=== PATIENT | male | born 1960 | race Caucasian/White ===

== ENCOUNTER 2020-11-10 15:25 | Emergency (ER) | payer MEDICARE, SELFPAY ==
[2020-11-10] VITALS (15 sets, daily range): BP systolic 94–127; BP diastolic 63–86; PULSE 65–96; RESP 12–23; TEMP 36.2; O2SAT 93–98; BMI 32.1
--- NOTE | 2020-11-10 15:26 | DI.RAD.S_ITS ---
PROCEDURE: XR ACUTE ABDOMEN SERIES INDICATIONS: nausea / vomiting / diarrhea/ dizziness TECHNIQUE: One view chest and two views of the abdomen were acquired. COMPARISON: None. FINDINGS: Surgical changes and devices: None. Chest: Lungs are clear. Heart size is normal. No pleural effusions. No pneumoperitoneum. Abdomen: Bowel gas pattern is nonobstructive. No suspicious calcifications. Visualized solid organ contours appear normal. Bones: No suspicious bony lesions. IMPRESSION: Chest and abdomen without acute radiographic abnormalities. Nonobstructive bowel gas pattern. Dictated by: Everardo Perea M.D. on 11/10/2020 at 16:08 Approved by: Everardo Perea M.D. on 11/10/2020 at 16:11
[2020-11-10 16:05] LABS: COVID19 -Nasal RAPID Negative (Negative)
[2020-11-10 16:07] LABS: Add Manual Diff / Slide Review NO; Basophils Absolute Auto 100 /uL (0-100); Basophils Percent Auto 0.3 % (0-2); Eosinophils Absolute Auto 100 /uL (0-450); Eosinophils Percent Auto 0.3 % (2-4); Hematocrit 52.2 % (41-53); Hemoglobin 17.2 g/dL (13.5-17.5); Lymphocytes Absolute Auto 1600 /uL (1100-4500); Lymphocytes Percent Auto 8.5 % (25-40); Mean Corpuscular HGB Conc 32.9 % (30-36); Mean Corpuscular Hemoglobin 29.6 PG (26-34); Mean Corpuscular Volume 89.8 fL (80-100); Monocytes Absolute Auto 900 /uL (0-900); Monocytes Percent Auto 4.4 % (3-14); Neutrophils Absolute Auto 16700 /uL (1500-7000); Neutrophils Percent Auto 86.5 % (50-75); Platelet Count 264 X10^3/uL (150-400); Red Blood Cell Count 5.81 X10^6/uL (4.5-5.9); Red Cell Distribution Width 12.9 % (11.6-14.8); White Blood Cell Count 19.3 X10^3/uL (4.5-11.0)
[2020-11-10 16:17] LABS: Alanine Aminotransferase 48 IU/L (<50); Albumin 4.1 g/dL (3.5-5.0); Albumin Globulin Ratio 1.8 (1.0-2.8); Alkaline Phosphatase 58 U/L (38-126); Aspartate Aminotransferase 33 IU/L (17-59); BUN Creatinine Ratio 33.8 (6-22); Bilirubin Total 0.3 mg/dL (0.2-1.3); Blood Urea Nitrogen 27 mg/dL (9-20); Calcium 8.8 mg/dL (8.4-10.2); Carbon Dioxide 22 mmol/L (22-32); Chloride 105 mmol/L (98-107); Creatine Kinase 204 U/L (55-170); Estimated Glomerular Filt Rate > 60.0 mL/min (>60); Globulin 2.3 g/dL (1.7-4.1); Glucose 197 mg/dL (80-110); HEMOLYSIS < 15 (0-50); Lipase 80 U/L (23-300); Potassium 4.5 mmol/L (3.4-5.1); Sodium 136 mmol/L (137-145); Total Protein 6.4 g/dL (6.3-8.2)
[2020-11-10 16:28] LABS: Troponin I < 0.012 ng/mL (0.01-0.034)
[2020-11-10 16:32] LABS: Creatine Kinase MB 4.02 ng/mL (<2.37)
--- NOTE | 2020-11-10 16:48 | ED.DIZZY ---
HPI - Dizziness General Chief Complaint: Dizziness Time Seen by Provider: 11/10/20 16:00 Source: patient and EMS Mode of arrival: Ambulatory Limitations: no limitations History of Present Illness HPI Narrative: Patient is 60-year-old male who presents with sudden onset nausea vomiting dizziness diarrhea. He said he was feeling nauseous he got dizzy sweaty lightheaded vomited a few times and then had 1 episode of diarrhea. He feels like he is dizzy with movement but overall feeling a bit better. He has no numbness tingling or weakness. He has been having palpitations ongoing for a number of months but is not any worse. He denies any chest pain. He was feeling perfectly well in his normal state of health this. Related Data Home Medications Medication Instructions Recorded Confirmed MULTIVITAMIN (Multivitamin #0 05/27/03 -) Previous Rx's Medication Instructions Recorded ondansetron 4 mg disintegrating 4 mg PO Q8H PRN #10 tab 11/10/20 tablet Allergies Allergy/AdvReac Type Severity Reaction Status Date / Time No Known Drug Allergies Allergy Verified 11/10/20 15:30 Review of Systems Review of Systems Narrative: GENERAL: Denies chills, fatigue, malaise, fever, sweats, travel HEENT: Denies sinus pain, ear pain, sore throat, difficulty swallowing, neck pain RESPIRATORY: Denies dyspnea, cough, wheezing, hemoptysis, sputum. CARDIOVASCULAR: Denies chest pain, palpitations, orthopnea, edema GASTROINTESTINAL: See HP : Denies dysuria, frequency, incontinence, hematuria, urinary retention, flank pain. MUSCULOSKELETAL: Denies weakness, joint pain, or bony pain SKIN: No rash, no erythema, no pruritus NEUROLOGIC: See HP PSYCHIATRIC: No concerning psychosocial issues. 12 point review of systems is negative except for those stated above and HPI Patient History Social History Smoking Status: Never smoker Smoking Status: Never smoker Substance Use Type: does not use Exam Initial Vital Signs Initial Vital Signs: Vital Signs Pulse Rate 93 H 11/10/20 15:25 Respiratory Rate 12 11/10/20 15:25 Pulse Oximetry 93 11/10/20 15:25 GENERAL: Alert 60-year-old male and in no acute distress. HEENT: Head atraumatic,EOMI, pupils reactive, face symmetric, moist mucous membranes CARDIOVASCULAR: Regular rate and rhythm without murmurs, rubs or gallops. RESPIRATORY: Breath sounds equal bilaterally, no wheezes rales or rhonchi. ABDOMEN: Soft, nontender. Normoactive bowel sounds all 4 quadrants. No guarding or rebound. EXTREMITIES: Normal range of motion, no clubbing or edema. Neurovascularly intact NEUROLOGICAL: Alert and oriented x4.Normal gait and speech. Cranial nerves II through XII grossly intact. Good [id number], good [id number], strength equal bilaterally, right leg is noted to be slightly weaker very minimal drift in the right leg no dysarthria or aphasia, sensation in tact to soft touch bilaterally, no visual changes, no facial droop SKIN: Warm, dry, no laceration, no petechiae, no rashes or lesions. Scores NIH Stroke Scale Level of Conciousness: Alert, keenly responsive Ask month/age: Answers both questions correctly. Open/close eyes, close hand: Performs both tasks correctly Best gaze horizontal: Normal Visual bettencourt: No visual loss Facial palsy: Normal symetrical movement Left arm drift: No drift for full 10 sec Right arm drift: No drift for full 10 sec Left leg drift: No drift for full 5 sec Right leg drift: Drifts down, not to bed Limb ataxia: Absent Sensory on face/arms/legs: Normal, no sensory loss Best language: No aphasia, normal Dysarthria: Normal Extinction or inattention: No abnormality Total NIH Stroke scale score: 1 Course Orders Ordered: Discontinued Medications Sodium Chloride (Normal Saline 0.9%) 1,000 mls @ 1,000 mls/hr IV BOLUS ONE Stop: 11/10/20 18:16 Last Infusion: 11/10/20 20:19 Dose: 0 mls/hr Documented by: Admin: 11/10/20 17:20 Dose: 1,000 mls/hr Documented by: WARREN Metoclopramide HCl (Metoclopramide 10 Mg/2 Ml Inj) 10 mg IV NOW ONE Stop: 11/10/20 16:50 Last Admin: 11/10/20 16:52 Dose: 10 mg Documented by: WARREN Ondansetron HCl (Ondansetron 4 Mg Odt Prepack) 1 bottle MISC SEEINSTR ONE Stop: 11/10/20 20:04 Last Admin: 11/10/20 20:19 Dose: 1 bottle Documented by: WARREN Vital Signs Vital signs: Vital Signs - 8 hr 11/10/20 15:25 11/10/20 15:30 11/10/20 15:53 Temperature 97.1 F L Pulse Rate 93 H 93 H 90 Respiratory Rate 12 18 16 Blood Pressure 110/81 99/63 Pulse Oximetry 93 95 93 11/10/20 16:00 11/10/20 16:01 11/10/20 16:30 Temperature Pulse Rate 93 H 92 H 93 H Respiratory Rate 17 19 19 Blood Pressure 97/63 98/66 Pulse Oximetry 94 94 94 11/10/20 17:00 11/10/20 17:35 11/10/20 18:00 Temperature Pulse Rate 96 H 79 77 Respiratory Rate 20 15 14 Blood Pressure Pulse Oximetry 94 97 95 11/10/20 18:23 11/10/20 18:30 Temperature Pulse Rate 84 87 Respiratory Rate 17 15 Blood Pressure 94/65 100/72 Pulse Oximetry 94 94 MDM - Dizziness Lab Data Result diagrams: 11/10/20 15:55 11/10/20 15:55 Labs: Lab Results 11/10/20 11/10/20 11/10/20 Range/Units 15:23 15:55 15:55 WBC 19.3 H (4.5-11.0) X10^3/uL RBC 5.81 (4.5-5.9) X10^6/uL Hgb 17.2 (13.5-17.5) g/dL Hct 52.2 (41-53) % MCV 89.8 (80-100) fL MCH 29.6 (26-34) PG MCHC 32.9 (30-36) % RDW 12.9 (11.6-14.8) % Plt Count 264 (150-400) X10^3/uL Neut % (Auto) 86.5 H (50-75) % Lymph % (Auto) 8.5 L (25-40) % Snyder % (Auto) 4.4 (3-14) % Eos % (Auto) 0.3 L (2-4) % Baso % (Auto) 0.3 (0-2) % Neut # (Auto) 27688 H (8638-6232) /uL Lymph # (Auto) 1600 (1661-4314) /uL Snyder # (Auto) 900 (0-900) /uL Eos # (Auto) 100 (0-450) /uL Baso # (Auto) 100 (0-100) /uL Sodium 136 L (137-145) mmol/L Potassium 4.5 (3.4-5.1) mmol/L Chloride 105 (98-107) mmol/L Carbon Dioxide 22 (22-32) mmol/L BUN 27 H (9-20) mg/dL Creatinine 0.80 (0.66-1.25) mg/dL Estimated GFR > 60.0 (>60) mL/min BUN/Creatinine Ratio 33.8 H (6-22) Glucose 197 H (80-110) mg/dL Lactate (0.7-2.1) mmol/L Calcium 8.8 (8.4-10.2) mg/dL Total Bilirubin 0.3 (0.2-1.3) mg/dL AST 33 (17-59) IU/L ALT 48 (<50) IU/L Alkaline Phosphatase 58 (38-126) U/L Total Creatine Kinase 204 H (55-170) U/L CK-MB (CK-2) 4.02 H (<2.37) ng/mL CK-MB (CK-2) Rel Index 2.0 (1.5-5.0) % Troponin I < 0.012 (0.01-0.034) ng/mL Total Protein 6.4 (6.3-8.2) g/dL Albumin 4.1 (3.5-5.0) g/dL Globulin 2.3 (1.7-4.1) g/dL Albumin/Globulin Ratio 1.8 (1.0-2.8) Lipase 80 (23-300) U/L SARS-CoV-2 (PCR) Negative (Negative) 11/10/20 Range/Units 15:58 WBC (4.5-11.0) X10^3/uL RBC (4.5-5.9) X10^6/uL Hgb (13.5-17.5) g/dL Hct (41-53) % MCV (80-100) fL MCH (26-34) PG MCHC (30-36) % RDW (11.6-14.8) % Plt Count (150-400) X10^3/uL Neut % (Auto) (50-75) % Lymph % (Auto) (25-40) % Snyder % (Auto) (3-14) % Eos % (Auto) (2-4) % Baso % (Auto) (0-2) % Neut # (Auto) (2658-4807) /uL Lymph # (Auto) (1773-7365) /uL Snyder # (Auto) (0-900) /uL Eos # (Auto) (0-450) /uL Baso # (Auto) (0-100) /uL Sodium (137-145) mmol/L Potassium (3.4-5.1) mmol/L Chloride (98-107) mmol/L Carbon Dioxide (22-32) mmol/L BUN (9-20) mg/dL Creatinine (0.66-1.25) mg/dL Estimated GFR (>60) mL/min BUN/Creatinine Ratio (6-22) Glucose (80-110) mg/dL Lactate 1.7 (0.7-2.1) mmol/L Calcium (8.4-10.2) mg/dL Total Bilirubin (0.2-1.3) mg/dL AST (17-59) IU/L ALT (<50) IU/L Alkaline Phosphatase (38-126) U/L Total Creatine Kinase (55-170) U/L CK-MB (CK-2) (<2.37) ng/mL CK-MB (CK-2) Rel Index (1.5-5.0) % Troponin I (0.01-0.034) ng/mL Total Protein (6.3-8.2) g/dL Albumin (3.5-5.0) g/dL Globulin (1.7-4.1) g/dL Albumin/Globulin Ratio (1.0-2.8) Lipase (23-300) U/L SARS-CoV-2 (PCR) (Negative) Point of Care Testing Glucose POC 177 Urine Dip Bedside Urine Glucose Negative Bedside Urine Bilirubin - Negative Bedside Urine Ketone +/- 5 Urine Specific Newell 1.010 Bedside Urine Occult Blood - Negative Bedside Urine pH 5.5 Bedside Urine Protein - Negative Bedside Urine Urobilinogen - Negative Bedside Urine Nitrite - Negative Bedside Urine Leukocytes - Negative Esterase Imaging Data CT scan - head: Radiologist's Impression: PROCEDURE:? CT HEAD/BRAIN WO CON ? INDICATIONS:? dizzy ? TECHNIQUE:? Noncontrast 4.5 mm thick angled axial sections acquired from the foramen magnum to the vertex, with coronal and sagittal reformats.? For radiation dose reduction, the following was used:? automated exposure control, adjustment of mA and/or kV according to patient size.? ? COMPARISON:? [facility], CT, CT ABDOMEN PELVIS W CON, 11/10/2020, 17:30.? [facility], CR, XR ACUTE ABDOMEN SERIES, 11/10/2020, 15:32. ? FINDINGS:? Image quality:? Excellent.? ? CSF spaces:? Basal cisterns are patent.? No extra-axial fluid collections.? The ventricles are symmetric in size and shape.? ? Brain:? No intracranial bleeds or masses.? There is cerebral volume loss for age, with resultant ventricular and sulcal prominence.? There are periventricular and deep white matter chronic small vessel ischemic changes.? There is intracranial internal carotid artery atherosclerosis.? ? Skull and face:? Calvarium and visualized facial bones appear intact, without suspicious lesions.? ? Sinuses:? Visualized sinuses and mastoids are clear.? ? ? IMPRESSION:? ? No acute intracranial process is seen on this noncontrast head CT.? ? ? Dictated by: Bony Guido M.D. on 11/10/2020 at 16:41 ? ? CT scan - abdomen/pelvis: Radiologist's Impression: PROCEDURE:? CT ABDOMEN PELVIS W CON ? INDICATIONS:? vomiting ? TECHNIQUE:? After the administration of oral and IV contrast, axial sections were acquired from the lung bases to the pubic symphysis.? Coronal and sagittal reformats were performed.? For radiation dose reduction, the following was used:? automated exposure control, adjustment of mA and/or kV according to patient size. ? COMPARISON:? [facility], CT, CT HEAD/BRAIN WO CON, 11/10/2020, 17:09.? [facility], CR, XR ACUTE ABDOMEN SERIES, 11/10/2020, 15:32. ? FINDINGS:? Image quality:? Excellent.? ? Lung bases:? Unremarkable.? ? Heart:? No significant findings.? There is mild coronary artery calcifications. ? ? ABDOMEN: Liver:? Unremarkable.? ? Gallbladder:? Unremarkable.? ? Biliary ducts:? Unremarkable.? ? Pancreas:? Unremarkable.? ? Spleen:? Unremarkable.? ? Adrenal Glands:? Unremarkable.? ? Kidneys and Ureters:? Unremarkable.? ? ? Stomach and Bowel:? Generalized abnormal wall thickening can be seen involving the proximal to mid small bowel.? The adjacent mesentery is hazy and edematous.? The distal small bowel loops are within normal limits.? No significant colonic abnormality is seen. Peritoneum:? A small amount of ascites can be seen involving the upper abdomen and also layering within the pelvis.? No free air.? ? Ventral Wall: ? No hernia.? Abdominal Nodes:? No retroperitoneal or mesenteric adenopathy by size criteria.? Vessels:? Aorta and inferior vena cava are normal in size.? ? PELVIS: Pelvic Organs:? Unremarkable.? ? Bladder:? Unremarkable.? ? Pelvic Nodes: No enlarged lymph nodes.? Miscellaneous:? Bilateral fat containing inguinal hernias are seen. ? Bones:? Unremarkable.? IMPRESSION:? ? Proximal prominent enteritis, with diffuse thickening of the proximal and mid small bowel loops, with adjacent edema and haziness seen of the mesentery. ? A small amount of associated ascites is seen. ? Incidental note is made of: Mild coronary artery calcification Bilateral fat containing inguinal hernias ? Dictated by: Bony Guido M.D. on 11/10/2020 at 16:42 ? ? Approved by: Bony Guido M.D. on 11/10/2020 at 16:45 ? Abdominal x-ray: Radiologist's Impression: PROCEDURE:? XR ACUTE ABDOMEN SERIES ? INDICATIONS:? nausea / vomiting / diarrhea/ dizziness ? TECHNIQUE:? One view chest and two views of the abdomen were acquired.? ? COMPARISON:? None. ? FINDINGS:? ? Surgical changes and devices:? None.? ? Chest:? Lungs are clear.? Heart size is normal.? No pleural effusions.? No pneumoperitoneum.? ? Abdomen:? Bowel gas pattern is nonobstructive.? No suspicious calcifications.? Visualized solid organ contours appear normal.? ? Bones:? No suspicious bony lesions.? ? IMPRESSION:? Chest and abdomen without acute radiographic abnormalities.? Nonobstructive bowel gas pattern. ? ? Dictated by: Everardo ePrea M.D. on 11/10/2020 at 16:08 ? ? ECG Data Interpretation: Normal sinus rhythm rate 90 p.r. interval 178 QRS [address] changes T-wave inversion noted in lead 3 only MDM Narrative Medical decision making narrative: Patient's sudden-onset dizzy nausea vomiting and diarrhea. Dizziness has improved significantly. He has not had significant episodes of vomiting or diarrhea, he was feeling well earlier this morning. Found to have leukocytosis of 19 with a normal lactate, he is overall feeling better with fluids. Patient's right leg is noted to be weak. Patient states that he has had a difficult time walking for number of years he needs to hold onto his . 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 He does not believe that this leg weakness is new. I discussed with him if he does think it is new then it may be more stroke like. Both he and his state that that right leg weakness is old.He has no new neurologic deficits dizziness has improved with fluids. CT does show possible gastroenteritis. Treat him with anti nausea medications. At this time think antibiotics are not indicated will do conservative management although I did discuss with him he may need antibiotics if symptoms continue Discharge Plan Departure Patient Disposition: Home Clinical Impression: Gastroenteritis Instructions: DI for Viral Gastroenteritis -- Adult Activity Restrictions/Additional Instructions: *You have been diagnosed with gastroenteritis *What to do: Increase fluids as tolerated. At this time he likely have a virus. The recommend Gatorade or Gatorade like substance. If her symptoms do not improve in 7 days 80 may need to be re-evaluated in possible antibiotic *Continue to take medications as directed Zofran 4 mg every 8 hours if needed for nausea vomiting *Follow up with your primary care provider in 2-3 days *Return to ER if you should have increasing pain persistent vomiting, worsening dizziness weakness numbness or tingling any new, worsening or concerning symptoms Prescriptions: New ondansetron 4 mg tablet,disintegrating 4 mg PO Q8H PRN (Reason: nausea and vomiting) Qty: 10 RF: 0 No Action MULTIVITAMIN (Multivitamin -) Qty: 0 RF: 0
[2020-11-10] MEDS: METOCLOPRAMIDE 10 MG/2 ML INJ IV (16:52)
[2020-11-10 16:54] LABS: Lactate (Lactic Acid) 1.7 mmol/L (0.7-2.1)
--- NOTE | 2020-11-10 16:57 | DI.CT.S_ITS ---
PROCEDURE: CT HEAD/BRAIN WO CON INDICATIONS: dizzy TECHNIQUE: Noncontrast 4.5 mm thick angled axial sections acquired from the foramen magnum to the vertex, with coronal and sagittal reformats. For radiation dose reduction, the following was used: automated exposure control, adjustment of mA and/or kV according to patient size. COMPARISON: [facility], CT, CT ABDOMEN PELVIS W CON, 11/10/2020, 17:30. [facility], CR, XR ACUTE ABDOMEN SERIES, 11/10/2020, 15:32. FINDINGS: Image quality: Excellent. CSF spaces: Basal cisterns are patent. No extra-axial fluid collections. The ventricles are symmetric in size and shape. Brain: No intracranial bleeds or masses. There is cerebral volume loss for age, with resultant ventricular and sulcal prominence. There are periventricular and deep white matter chronic small vessel ischemic changes. There is intracranial internal carotid artery atherosclerosis. Skull and face: Calvarium and visualized facial bones appear intact, without suspicious lesions. Sinuses: Visualized sinuses and mastoids are clear. IMPRESSION: No acute intracranial process is seen on this noncontrast head CT. Dictated by: Bony Guido M.D. on 11/10/2020 at 16:41 Approved by: Bony Guido M.D. on 11/10/2020 at 16:42
--- NOTE | 2020-11-10 16:57 | DI.CT.S_ITS ---
PROCEDURE: CT ABDOMEN PELVIS W CON INDICATIONS: vomiting TECHNIQUE: After the administration of oral and IV contrast, axial sections were acquired from the lung bases to the pubic symphysis. Coronal and sagittal reformats were performed. For radiation dose reduction, the following was used: automated exposure control, adjustment of mA and/or kV according to patient size. COMPARISON: [facility], CT, CT HEAD/BRAIN WO CON, 11/10/2020, 17:09. [facility], CR, XR ACUTE ABDOMEN SERIES, 11/10/2020, 15:32. FINDINGS: Image quality: Excellent. Lung bases: Unremarkable. Heart: No significant findings. There is mild coronary artery calcifications. ABDOMEN: Liver: Unremarkable. Gallbladder: Unremarkable. Biliary ducts: Unremarkable. Pancreas: Unremarkable. Spleen: Unremarkable. Adrenal Glands: Unremarkable. Kidneys and Ureters: Unremarkable. Stomach and Bowel: Generalized abnormal wall thickening can be seen involving the proximal to mid small bowel. The adjacent mesentery is hazy and edematous. The distal small bowel loops are within normal limits. No significant colonic abnormality is seen. Peritoneum: A small amount of ascites can be seen involving the upper abdomen and also layering within the pelvis. No free air. Ventral Wall: No hernia. Abdominal Nodes: No retroperitoneal or mesenteric adenopathy by size criteria. Vessels: Aorta and inferior vena cava are normal in size. PELVIS: Pelvic Organs: Unremarkable. Bladder: Unremarkable. Pelvic Nodes: No enlarged lymph nodes. Miscellaneous: Bilateral fat containing inguinal hernias are seen. Bones: Unremarkable. IMPRESSION: Proximal prominent enteritis, with diffuse thickening of the proximal and mid small bowel loops, with adjacent edema and haziness seen of the mesentery. A small amount of associated ascites is seen. Incidental note is made of: Mild coronary artery calcification Bilateral fat containing inguinal hernias Dictated by: Bony Guido M.D. on 11/10/2020 at 16:42 Approved by: Bony Guido M.D. on 11/10/2020 at 16:45
[2020-11-10] MEDS: SODIUM CHLORIDE 0.9% 1,000 ML 1000 ML IV (17:20)
[2020-11-10] MEDS: ONDANSETRON 4 MG ODT PREPACK 1 BOTTLE MISC (20:19)
== END 2020-11-10 20:29 | disposition home or self-care (01) ==
PROVIDERS: Emergency Provider Emergency Medicine
DX: K52.9 Noninfective gastroenteritis and colitis, unspecified (principal); R42 Dizziness and giddiness; R11.2 Nausea with vomiting, unspecified; Z20.822 Contact with and (suspected) exposure to COVID-19
CPT/HCPCS: 70450; 74022; 74177; 80053; 81003; 82550; 82553; 83605; 83690; 84484; 85025; 87635; 93005; 96361; 96374; 99284; 99285; C9803; J2765

== ENCOUNTER 2022-10-31 13:39 | Emergency (ER) | payer MEDICARE, SELFPAY ==
[2022-10-31] VITALS (18 sets, daily range): BP systolic 122–178; BP diastolic 87–103; PULSE 61–67; RESP 8–24; TEMP 36.8; O2SAT 95–98; BMI 28.8
--- NOTE | 2022-10-31 13:42 | DI.CT.S_ITS ---
PROCEDURE: CT HEAD/BRAIN WO CON INDICATIONS: Trauma TECHNIQUE: Noncontrast 4.5 mm thick angled axial sections acquired from the foramen magnum to the vertex, with coronal and sagittal reformats. For radiation dose reduction, the following was used: automated exposure control, adjustment of mA and/or kV according to patient size. COMPARISON: [facility], CT, CT HEAD/BRAIN WO CON, 11/10/2020, 17:09. FINDINGS: Image quality: Excellent. CSF spaces: Basal cisterns are patent. No extra-axial fluid collections. Ventricles are normal in size and shape. Brain: No midline shift. No intracranial masses or hemorrhage. Johnson-white matter interface is normal. Skull and face: Calvarium and visualized facial bones are intact, without suspicious lesions. Sinuses: Visualized sinuses and mastoids are clear. IMPRESSION: No acute intracranial abnormality. Dictated by: Je Matias M.D. on 10/31/2022 at 14:39 Approved by: Je Matias M.D. on 10/31/2022 at 14:41
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
--- NOTE | 2022-10-31 13:42 | DI.CT.S_ITS ---
PROCEDURE: CT CHEST ABD PEL W CON INDICATIONS: Trauma TECHNIQUE: After the administration of intravenous contrast, 5 mm thick sections acquired from the lung apices to the symphysis. 5 mm coronal and sagittal reformats were performed, with additional 7 mm MIP reformats through the lungs. For radiation dose reduction, the following was used: automated exposure control, adjustment of mA and/or kV according to patient size. COMPARISON: [facility], CT, CT ABDOMEN PELVIS W CON, 11/10/2020, 17:30. FINDINGS: Image quality: Excellent. CHEST: Lungs and pleura: No acute airspace opacities. No pleural effusions or pneumothorax. Central and peripheral airways appear patent and normal in caliber. Mediastinum: Heart size is normal. No pericardial effusion. No mediastinal or hilar adenopathy by size criteria. Thoracic aorta and central pulmonary arteries are normal in size. Esophagus is normal in caliber. No hiatal hernia. Chest wall: No axillary or supraclavicular adenopathy by size criteria. Thyroid gland appears normal . ABDOMEN: Solid organs: Liver is normal in size and enhancement. Gallbladder appears normal . Biliary system is non dilated. Pancreas enhances normally. Spleen is normal in size and enhancement. No adrenal nodules. Kidneys demonstrate normal size and enhancement, without hydronephrosis. Peritoneum and bowel: Bowel loops demonstrate normal wall thickness and caliber. No free fluid or air. Nodes and vessels: No retroperitoneal or mesenteric adenopathy by size criteria. Aorta and inferior vena cava are normal in size. Miscellaneous: No ventral hernias. PELVIS: Genitourinary: Bladder wall thickness is normal. Miscellaneous: No inguinal hernias or adenopathy. Normal appendix found right lower quadrant. Bones: No suspicious bony lesions. No vertebral body compression fractures. IMPRESSION: Normal examination, no trauma found. Dictated by: Joni Trotter M.D. on 10/31/2022 at 14:48 Approved by: Joni Trotter M.D. on 10/31/2022 at 14:50
[2022-10-31 13:52] LABS: Add Manual Diff / Slide Review NO; Basophils Absolute Auto 0 /uL (0-100); Basophils Percent Auto 0.6 % (0-2); Eosinophils Absolute Auto 200 /uL (0-450); Eosinophils Percent Auto 3.8 % (2-4); Hematocrit 40.1 % (41-53); Hemoglobin 13.6 g/dL (13.5-17.5); Lymphocytes Absolute Auto 1900 /uL (1100-4500); Lymphocytes Percent Auto 35.1 % (25-40); Mean Corpuscular HGB Conc 33.9 % (30-36); Mean Corpuscular Hemoglobin 29.9 PG (26-34); Mean Corpuscular Volume 88.2 fL (80-100); Monocytes Absolute Auto 400 /uL (0-900); Monocytes Percent Auto 8.3 % (3-14); Neutrophils Absolute Auto 2800 /uL (1500-7000); Neutrophils Percent Auto 52.2 % (50-75); Platelet Count 222 X10^3/uL (150-400); Red Blood Cell Count 4.54 X10^6/uL (4.5-5.9); Red Cell Distribution Width 13.8 % (11.6-14.8); White Blood Cell Count 5.4 X10^3/uL (4.5-11.0)
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
[2022-10-31 13:59] LABS: Prothrombin Time 11.7 SECONDS (10.1-12.7)
[2022-10-31 14:01] LABS: PTT Partial Thromboplastin Tim 35 SECONDS (26-36)
[2022-10-31 14:04] LABS: Alanine Aminotransferase 39 IU/L (<50); Albumin 4.4 g/dL (3.5-5.0); Albumin Globulin Ratio 1.6 (1.0-2.8); Alkaline Phosphatase 65 U/L (38-126); Aspartate Aminotransferase 42 IU/L (17-59); BUN Creatinine Ratio 18.7 (6-22); Bilirubin Total 0.4 mg/dL (0.2-1.3); Blood Urea Nitrogen 17 mg/dL (9-20); Calcium 9.5 mg/dL (8.4-10.2); Carbon Dioxide 28 mmol/L (22-32); Chloride 103 mmol/L (98-107); Estimated Glomerular Filt Rate > 60 mL/min (>60); Ethanol (ETOH) < 10 mg/dL; Globulin 2.8 g/dL (1.7-4.1); Glucose 104 mg/dL (80-110); HEMOLYSIS < 15 (0-50); Lipase 84 U/L (23-300); Potassium 3.9 mmol/L (3.4-5.1); Sodium 138 mmol/L (137-145); Total Protein 7.2 g/dL (6.3-8.2)
[2022-10-31] MEDS: ACETAMINOPHEN 325 MG TABLET 975 MG PO (15:06)
--- NOTE | 2022-10-31 15:13 | DI.RAD.S_ITS ---
PROCEDURE: XR CLAVICLE LT INDICATIONS: pain, swelling TECHNIQUE: 2 views of the clavicle were acquired. COMPARISON: None. FINDINGS: Bones: No fractures or dislocations. No suspicious bony lesions. Soft tissues: No suspicious soft tissue calcifications. 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 Dictated by: Joni Trotter M.D. on 10/31/2022 at 16:10 Approved by: Joni Trotter M.D. on 10/31/2022 at 16:10
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
[2022-10-31 15:58] LABS: UR Morphine/Opiate cutoff 300 Negative (Negative); Ur Creatinine Normal (Normal); Ur Specific Gravity Normal (Normal); Urine Amphetamines Negative (Negative); Urine Barbiturates Negative (Negative); Urine Benzodiazepines Negative (Negative); Urine Cocaine Negative (Negative); Urine MDMA Negative (Negative); Urine Methadone Negative (Negative); Urine Methamphetamines Negative (Negative); Urine Oxycodone Negative (Negative); Urine Phencyclidine Negative (Negative); Urine Tetrahydrocannabinol Negative (Negative); Urine Tricyclic Antidepressant Negative (Negative); Urine pH Normal (Normal)
== END 2022-10-31 17:00 | disposition home or self-care (01) ==
PROVIDERS: Emergency Provider Emergency Medicine
DX: S20.219A Contusion of unspecified front wall of thorax, initial encounter (principal); S40.022A Contusion of left upper arm, initial encounter; S30.811A Abrasion of abdominal wall, initial encounter; S19.9XXA Unspecified injury of neck, initial encounter; V89.2XXA Person injured in unspecified motor-vehicle accident, traffic, initial encounter
CPT/HCPCS: 70450; 71260; 72125; 73000; 73080; 74177; 80053; 80305; 80320; 81003; 83605; 83690; 85025; 85610; 85730; 86850; 86900; 86901; 93005; 99284; 99285; Q9967